=== PATIENT | male | born 1985 | race Caucasian/White ===

== ENCOUNTER 2021-03-29 12:46 | Emergency (ER) | payer BC, OTHER ==
[2021-03-29] MEDS ORDERED: Hydromorphone 1 mg/ml Injection IV ONE (13:01)
[2021-03-29] MEDS ORDERED: ROCEPHIN 1 Gm-D5w 50 ml Bag** 1 G/50 ML IVPB IV STA (13:02)
[2021-03-29 13:07] VITALS: O2SAT 98
[2021-03-29] MEDS ORDERED: ROCEPHIN 1 Gm-D5w 50 ml Bag** 1 G/50 ML IVPB IV ONE (13:08)
[2021-03-29] MEDS ORDERED: Hydromorphone 1 mg/ml Injection ONE (13:08)
[2021-03-29] MEDS ORDERED: Zofran 4 MG/2 ML VIAL ONE (13:08)
[2021-03-29] MEDS ORDERED: Sodium Chloride 0.9% 1000 ML 1,000 ML ONE (13:08)
[2021-03-29] MEDS ORDERED: Adacel Vial IM ONE ×2 (13:10→13:17)
[2021-03-29] MEDS ORDERED: Zofran 4 MG/2 ML VIAL IV ONE (13:10)
--- NOTE | 2021-03-29 13:10 | ERPHSYRPT ---
- History of Present Illness Time Seen by Provider: 03/29/21 13:05 Source: patient Exam Limitations: no limitations Physician History: Patient is a 35-year-old male who presents with a complaint of injury to his right hand particularly the fifth digit. He was using a chainsaw when he essentially amputated his fifth finger. There is some skin still attached. The amputation level is right at the joint of the metatarsal phalangeal joint he has had nothing to eat he is on no blood thinners on no medications. He has no other injury or problem at this time. Occurred: just prior to arrival Method of Injury: incised Quality: aching, throbbing Severity of Pain-Max: moderate Severity of Pain-Current: moderate Extremities Pain Location: 5th finger: right (Nearly complete amputation) Modifying Factors: Improves With: nothing Associated Symptoms: none Allergies/Adverse Reactions: No Known Drug Allergies Allergy (Unverified 03/29/21 12:55) Home Medications: No Reportable Medications [No Reported Medications] 03/29/21 [History] Hx Tetanus, Diphtheria Vaccination/Date Given: No - Review of Systems Constitutional: No Fever, No Chills Eyes: No Symptoms Ears, Nose, & Throat: No Symptoms Respiratory: No Cough, No Dyspnea Cardiac: No Chest Pain, No Edema, No Syncope Abdominal/Gastrointestinal: No Abdominal Pain, No Nausea, No Vomiting, No Diarrhea Genitourinary Symptoms: No Dysuria Musculoskeletal: No Back Pain, No Neck Pain Skin: No Rash Neurological: No Dizziness, No Focal Weakness, No Sensory Changes Psychological: No Symptoms Endocrine: No Symptoms All Other Systems: Reviewed and Negative - Nursing Vital Signs Nursing Vital Signs: Initial Vital Signs Temperature 97.8 F 03/29/21 12:56 Pulse Rate 87 03/29/21 12:56 Respiratory Rate 18 03/29/21 12:56 Blood Pressure 141/94 03/29/21 12:56 O2 Sat by Pulse Oximetry 98 03/29/21 12:56 Pain Scale Pain Intensity 6 - Physical Exam General Appearance: mild distress, anxiety Eyes, Ears, Nose, Throat Exam: normal ENT inspection Neck Exam: normal inspection, supple, full range of motion Back Exam: normal inspection, normal range of motion Shoulder Exam: normal inspection, non-tender Elbow/Forearm Exam: normal inspection, non-tender Wrist Exam: normal inspection, non-tender Hand Exam: laceration (There is a near total amputation of the fifth digit only some strands of skin remain attached the amputation level is at the metatarsal phalangeal joint fifth on the right there are open lacerations to the distal fifth digit primarily the middle phalanx) Neuro/Tendon Exam: tendon injury visualized (Examination shows near total amputation of the fifth digit tendon injury neurologic injury and vascular injury.) Mental Status Exam: alert, oriented x 3, cooperative - Course Nursing assessment & vital signs reviewed: Yes - Radiology Exams Right Hand X-ray Interpretation: Interpreted by me, Other (There is near-total amputation of the fifth digit extensive bony injury to the digit itself the level of amputation is at the MPJ) Ordered Tests: Active Orders 24 hr Category Date Time Status FINGER(S) Stat Exams 03/29/21 13:06 Taken HAND (MINIMUM 3 VIEWS) Stat Exams 03/29/21 13:00 Taken Medication Summary Generic Name Dose Route Start Last Admin Trade Name Freq PRN Reason Stop Dose Admin Sodium Chloride 1,000 mls @ 200 mls/hr 03/29/21 13:15 03/29/21 13:12 Sodium Chloride 0.9% 1000 Ml IV 04/28/21 13:14 200 mls/hr .Q5H MAX Administration Discontinued Medications Generic Name Dose Route Start Last Admin Trade Name Freq PRN Reason Stop Dose Admin Diphtheria/Tetanus/Acell Pertussis 0.5 ml 03/29/21 13:10 03/29/21 13:24 Tdap --Diph,Pertuss(Acell),Tet Vac/Pf 0.5 Ml Vial IM 03/29/21 13:11 0.5 ml .ONCE ONE Administration Diphtheria/Tetanus/Acell Pertussis Confirm 03/29/21 13:17 Tdap --Diph,Pertuss(Acell),Tet Vac/Pf 0.5 Ml Vial Administered 03/29/21 13:18 Dose 0.5 ml IM .STK-MED ONE Hydromorphone HCl 1 mg 03/29/21 13:01 03/29/21 13:09 Hydromorphone 1 Mg/1ml Inj 1 Mg/Ml Syringe IV 03/29/21 13:02 1 mg STAT ONE Administration Hydromorphone HCl Confirm 03/29/21 13:08 Hydromorphone 1 Mg/1ml Inj 1 Mg/Ml Syringe Administered 03/29/21 13:09 Dose 1 mg .ROUTE .STK-MED ONE Ceftriaxone Sodium/Dextrose 1 g in 50 mls @ 100 mls/hr 03/29/21 13:02 03/29/21 13:13 Rocephin 1 Gm-D5w 50 Ml Bag IV 03/29/21 13:31 100 mls/hr STAT STA 100 mls/hr Administration Ceftriaxone Sodium/Dextrose Confirm 03/29/21 13:08 Rocephin 1 Gm-D5w 50 Ml Bag Administered 03/29/21 13:09 Dose 1 g in 50 mls @ ud IV .STK-MED ONE Ondansetron HCl Confirm 03/29/21 13:08 Ondansetron Hcl 4 Mg/2 Ml Vial Administered 03/29/21 13:09 Dose 4 mg .ROUTE .STK-MED ONE Ondansetron HCl 4 mg 03/29/21 13:10 03/29/21 13:14 Ondansetron Hcl 4 Mg/2 Ml Vial IV 03/29/21 13:11 4 mg STAT ONE Administration - Progress Progress: unchanged Progress Note: 03/29/21 14:02 Patient was instructed to go directly to [facility] in [place] for treatment of his right fifth finger amputation. - Departure Departure Disposition: Transfer Clinical Impression: Finger amputation, traumatic Condition: Stable Critical Care Time: No
[2021-03-29] MEDS ORDERED: Sodium Chloride 0.9% 1000 ML 1,000 ML IV SCH (13:15)
[2021-03-29 14:17] VITALS: BP 135/94; PULSE 83
--- NOTE | 2021-03-29 19:24 | XRAY ---
Indication: Table saw injury. Comparison: December 13, 2006. 3 view right hand demonstrates new comminuted displaced moderately angulated 5th proximal phalanx fracture, nondisplaced 5th middle phalanx fracture, and diffuse 5th finger soft tissue swelling with laceration. No other bony, articular, or soft tissue abnormalities.
--- NOTE | 2021-03-29 19:28 | XRAY ---
Indication: Table saw injury. Comparison: None. 2 view right 5th finger demonstrates proximal phalanx amputation with comminuted fracture. Distal amputated finger lies adjacently with multifocal comminuted fractures and soft tissue swelling/laceration.
== END 2021-03-29 14:50 | disposition short-term general hospital (02) ==
LOC: ED 12:46
DX: S68.116A Complete traumatic metacarpophalangeal amputation of right little finger, initial encounter (principal); W29.3XXA Contact with powered garden and outdoor hand tools and machinery, initial encounter
CPT/HCPCS: 36000; 73130; 73140; 90471; 90715; 96365; 96374; 96375; 99285; J0696; J1170; J2405